=== PATIENT | female | born 1980 | race Caucasian/White ===

== ENCOUNTER 2021-04-17 14:26 | Emergency (ER) | payer BC ==
[2021-04-17 14:34] VITALS: BP 146/84; PULSE 112; RESP 18; TEMP 98.4
[2021-04-17 15:13] LABS: Amphetamine Screen,Urine Not Detected (NotDetected); Barbiturate Screen,Urine Not Detected (NotDetected); Benzodiazepines Screen,Urine Not Detected (NotDetected); Cocaine Screen,Urine Not Detected (NotDetected); Methadone Screen, Urine Not Detected (NotDetected); Opiate Screen,Urine Not Detected (NotDetected); Oxycodone Screen, Urine Not Detected (NotDetected); Phencyclidine Screen,Urine Not Detected (NotDetected); Tricyclic Antidepressant,Urine Not Detected (NotDetected); Urn Cannabinoid Scrn Not Detected (NotDetected)
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
[2021-04-17] MEDS ORDERED: LORazepam 1 MG TAB PO STA (16:47)
== END 2021-04-17 20:38 | disposition left against medical advice (07) ==
LOC: EC 14:26
DX: F23 Brief psychotic disorder (principal); F41.9 Anxiety disorder, unspecified; F17.200 Nicotine dependence, unspecified, uncomplicated; F12.90 Cannabis use, unspecified, uncomplicated
CPT/HCPCS: 80306; 82075; 99284